=== PATIENT | female | born 1990 | race Caucasian/White ===

== ENCOUNTER → 2016-11-20 | Day surgery (SDC) | payer OTHER ==
[~2016-11-20] VITALS: Ht 149.8 cm; Wt 55.8 kg
[~2016-11-20] MED LIST: BACTRIM DS 8001 TA1 PO; BIRTH CONTROL1 EAC1 PO; BUTALB-ACETAMI1 EAC1 PO; CIPRO250 MG PO; CLARITIN10 MG PO; COLACE100 MG PO; DIFLUCAN150 MG PO; FIORICET 325 MG1 TAB PO; FLONASE 0.05% 121 EA NAS; IRON325 M1 PO; LEVOTHYROXINE0.05 M1 PO; MEDROL DOSEPAK4 MG PO; MOTRIN800 MG PO; PERCOCET 325 MG1 TA2 PO; PNV PRENATAL HE1 TAB PO; ROBITUSSIN AC 110 ML PO; ZITHROMAX Z PA250 MG PO
--- NOTE | ~2016-11-20 | O ---
[place], [place] OPERATIVE NOTE NAME[id number] UNIT #: [id number] ROOM: DOCTOR: MADISYN GONZALEZ,ASHLEIGH BIRTHDATE: [birth year] DOS: 11/20/2016 GASTROENDOSCOPIC REPORT The patient is a 26-year-old who presented with rectal pain, undergoing investigation. PROCEDURE: Today's procedure part of investigation is colonoscopy. PREMEDICATION: Versed and Diprivan. SCOPE: Olympus folding colonoscope 10L video. REPORT: After putting the patient in the left lateral position and after application of lubricant to rectal pouch and digital examination, scope was introduced. Thereafter, under direct visualization, I advanced through the length of colon without difficulty. Base of the cecum explored, appendiceal orifice identified, and ileocecal valve was defined. Scope was gradually withdrawn ascending, transverse, descending colon. Patient extubated, tolerated procedure well. IMPRESSION: Small hemorrhoid, otherwise normal colonoscopic examination. PLAN: High fiber diet. ACTIVITY: Ad pat. Preparation H-suppositories p.r.n. for rectal management of periodic blood on the stool. PLAN: Otherwise, supportive management. ASHLEIGH MARS MD CM:OPRECORD:OPERATIVE NOTE [id number] ASHLEIGH MARS MD 11/20/16 1351 interface
[2016-11-20 10:40] VITALS: BP 112/70
[2016-11-20 10:54] VITALS: BP 81/35
[2016-11-20 11:10] VITALS: BP 120/70
[2016-11-20 11:23] VITALS: BP 116/64
== END | disposition home or self-care (01) ==
LOC: SDC 11-18 08:45
DX: K64.8 Other hemorrhoids (principal); K92.1 Melena

== ENCOUNTER 2019-05-02 15:53 | Emergency (ER) | payer OTHER ==
[~2019-05-02] VITALS: Ht 149.8 cm; Wt 57.2 kg
[~2019-05-02 15:53] MED LIST changes: +SEPTDS PO; +Zofran4 MG SL
[2019-05-02] MEDS ORDERED: CLINDAMYCIN HC300 MG PO (16:01)
[2019-05-02] MEDS ORDERED: NAPROSYN500 MG PO (16:01)
== END 2019-05-02 16:45 | disposition home or self-care (01) ==
LOC: ED 15:53
DX: K02.9 Dental caries, unspecified (principal); Z88.1 Allergy status to other antibiotic agents; Z79.899 Other long term (current) drug therapy

== ENCOUNTER 2019-09-05 21:24 | Emergency (ER) | payer OTHER ==
[~2019-09-05] VITALS: Ht 149.8 cm; Wt 57.2 kg
[~2019-09-05 21:24] MED LIST changes: +CLINDAMYCIN HC300 MG PO; +NAPROSYN500 MG PO
== END 2019-09-05 23:00 | disposition left against medical advice (07) ==
LOC: ED 21:24
DX: J02.9 Acute pharyngitis, unspecified (principal); Z53.21 Procedure and treatment not carried out due to patient leaving prior to being seen by health care provider

== ENCOUNTER 2021-02-06 15:32 | Emergency (ER) | payer OTHER ==
[~2021-02-06] VITALS: Wt 65.3 kg
[2021-02-06 16:10] LABS: BILIRUBIN Negative (Negative); BLOOD 3+ (Negative); CLARITY Cloudy (Clear); COLOR Yellow (Yellow); GLUCOSE Negative (Negative); KETONE Negative (Negative); LEUKO ESTERASE 2+ (Negative); NITRITE Positive (Negative); SPECIFIC GRAVITY 1.025 (1.001-1.030)
[2021-02-06 16:27] LABS: BACTERIA 4+; EPITHELIAL CELLS 16-20; RBC TNTC rbc/hpf (0-2); WBC TNTC wbc/hpf (0-5)
[2021-02-06 16:56] LABS: BASO % 0.1 % (0.0-1.0); HEMATOCRIT 30.4 % (37.0-47.0); MEAN CELL VOLUME 80.2 fl (81.0-99.0); MEAN CORPUSCULAR HGB 24.8 pg (27.0-31.0); MEAN CORPUSCULAR HGB CONC 30.9 g/dl (33.0-37.0); MONO # 0.6 10*3/uL (0.1-1.0); MONO % 4.7 % (3.0-9.0); NEUT # 10.4 10*3/uL (2.3-7.9); NEUT % 79.8 % (47.0-73.0); PLATELET COUNT AUTOMATED 461 10*3/uL (130-400); RED BLOOD COUNT 3.79 10*6/uL (4.10-5.10); RED CELL DISTRI WIDTH 14.9 % (0-14.5); WHITE BLOOD COUNT 13.1 10*3/uL (4.8-10.8)
[2021-02-06 17:38] LABS: ALBUMIN 4.1 gm/dl (3.1-4.5); ALKALINE PHOSPHATASE 95 U/L (45-117); BUN 15 mg/dl (7-24); CHLORIDE 107 mmol/L (98-107); CREATININE 0.79 mg/dL (0.55-1.02); POTASSIUM 3.7 mmol/L (3.5-5.1); SGOT/AST 11 IU/L (3-35); SGPT/ALT 21 U/L (12-78); SODIUM 137 mmol/L (136-145); TOTAL PROTEIN 7.9 gm/dL (6.4-8.2)
[2021-02-06] MEDS ORDERED: CIPRO500 MG PO (18:09)
[2021-02-06] MEDS ORDERED: NAPROXEN250 MG PO (18:09)
[2021-02-06] MEDS ORDERED: TYLENOL325 M1 PO (18:09)
[2021-02-06] MEDS ORDERED: PYRIDIUM200 M1 PO (18:09)
== END 2021-02-06 18:45 | disposition home or self-care (01) ==
LOC: ED 15:32
PROVIDERS: Emergency Medicine
DX: N12 Tubulo-interstitial nephritis, not specified as acute or chronic (principal); E66.9 Obesity, unspecified; Z79.899 Other long term (current) drug therapy; Z88.1 Allergy status to other antibiotic agents; Z87.891 Personal history of nicotine dependence

== ENCOUNTER 2022-01-05 18:01 | Emergency (ER) | payer OTHER ==
[~2022-01-05] VITALS: Wt 65.8 kg
[~2022-01-05 18:01] MED LIST changes: +CIPRO500 MG PO; +NAPROXEN250 MG PO; +PYRIDIUM200 M1 PO; +TYLENOL325 M1 PO
== END 2022-01-05 21:01 | disposition home or self-care (01) ==
LOC: ED 18:01
DX: S52.501A Unspecified fracture of the lower end of right radius, initial encounter for closed fracture (principal); Z88.1 Allergy status to other antibiotic agents; Z79.899 Other long term (current) drug therapy; W51.XXXA Accidental striking against or bumped into by another person, initial encounter; Y93.89 Activity, other specified; Y92.89 Other specified places as the place of occurrence of the external cause; Y99.8 Other external cause status

== ENCOUNTER 2022-01-10 17:38 | Emergency (ER) | payer OTHER ==
[~2022-01-10] VITALS: Ht 149.8 cm; Wt 65.8 kg
[~2022-01-10 17:38] MED LIST changes: +SYNTHROID,LEV125 MCG PO; +XARELTO1 EACH PO; +XARELTO20 M1 PO
[2022-01-10 18:32] LABS: BILIRUBIN Negative (Negative); BLOOD Negative (Negative); CLARITY Cloudy (Clear); COLOR Yellow (Yellow); GLUCOSE Negative (Negative); KETONE Trace (Negative); LEUKO ESTERASE 1+ (Negative); NITRITE Negative (Negative); PH 6.5 (4.5-8.0); SPECIFIC GRAVITY 1.025 (1.001-1.030)
[2022-01-10 18:40] LABS: BACTERIA 3+
[2022-01-10 18:41] LABS: EPITHELIAL CELLS TNTC
[2022-01-10 18:43] LABS: YEAST TRACE
[2022-01-10 19:12] LABS: BASO % 0.1 % (0.0-1.0); HEMATOCRIT 26.1 % (37.0-47.0); LYMPH # 3.2 10*3/uL (1.3-4.4); LYMPH % 16.2 % (27.0-41.0); MEAN CELL VOLUME 67.3 fl (81.0-99.0); MEAN CORPUSCULAR HGB 18.8 pg (27.0-31.0); MEAN PLATELET VOLUME 9.7 fl (9.6-12.3); MONO # 0.7 10*3/uL (0.1-1.0); MONO % 3.7 % (3.0-9.0); NEUT # 15.7 10*3/uL (2.3-7.9); NEUT % 78.5 % (47.0-73.0); PLATELET COUNT AUTOMATED 503 10*3/uL (130-400); RED BLOOD COUNT 3.88 10*6/uL (4.10-5.10); RED CELL DISTRI WIDTH 19.7 % (0-14.5)
[2022-01-10 19:27] LABS: ALKALINE PHOSPHATASE 83 U/L (45-117); BUN 18 mg/dl (7-24); CHLORIDE 109 mmol/L (98-107); CPK 34 U/L (26-192); POTASSIUM 3.7 mmol/L (3.5-5.1); SGOT/AST 18 IU/L (3-35); SGPT/ALT 39 U/L (12-78); SODIUM 141 mmol/L (136-145); TOTAL PROTEIN 6.9 gm/dL (6.4-8.2)
[2022-01-10] MEDS ORDERED: CIPRO500 MG PO (21:06)
== END 2022-01-10 21:22 | disposition home or self-care (01) ==
LOC: ED 17:38
PROVIDERS: Emergency Medicine; Internal Medicine
DX: N39.0 Urinary tract infection, site not specified (principal); D72.829 Elevated white blood cell count, unspecified; D50.9 Iron deficiency anemia, unspecified; Z88.1 Allergy status to other antibiotic agents

== ENCOUNTER 2022-06-28 09:41 | Emergency (ER) | payer SELFPAY ==
[~2022-06-28] VITALS: Ht 149.8 cm; Wt 62.6 kg
[2022-06-28 10:32] LABS: HEMATOCRIT 37.9 % (37.0-47.0); LYMPH # 1.1 10*3/uL (1.3-4.4); LYMPH % 9.6 % (27.0-41.0); MEAN CELL VOLUME 87.3 fl (81.0-99.0); MEAN CORPUSCULAR HGB 28.6 pg (27.0-31.0); MEAN CORPUSCULAR HGB CONC 32.7 g/dl (33.0-37.0); MEAN PLATELET VOLUME 9.8 fl (9.6-12.3); MONO # 0.4 10*3/uL (0.1-1.0); MONO % 3.7 % (3.0-9.0); NEUT # 10.2 10*3/uL (2.3-7.9); NEUT % 86.1 % (47.0-73.0); PLATELET COUNT AUTOMATED 287 10*3/uL (130-400); RED BLOOD COUNT 4.34 10*6/uL (4.10-5.10); WHITE BLOOD COUNT 11.8 10*3/uL (4.8-10.8)
[2022-06-28 10:34] LABS: BILIRUBIN Negative (Negative); BLOOD 3+ (Negative); CLARITY Cloudy (Clear); COLOR Yellow (Yellow); GLUCOSE Negative (Negative); KETONE Trace (Negative); LEUKO ESTERASE 1+ (Negative); NITRITE Negative (Negative); UROBILINOGEN 0.2 E.U./dl (0.0-1.0)
[2022-06-28 10:41] LABS: BACTERIA 2+; EPITHELIAL CELLS 21-30; MUCOUS 1+; RBC TNTC rbc/hpf (0-2)
[2022-06-28 10:51] LABS: ALKALINE PHOSPHATASE 68 U/L (46-116); BUN 13 mg/dl (9-23); CHLORIDE 106 mmol/L (98-107); CREATININE 0.77 mg/dL (0.55-1.02); LIPASE 36 U/L (12-53); POTASSIUM 3.7 mmol/L (3.4-5.1); SGPT/ALT 10 U/L (10-49); SODIUM 139 mmol/L (136-145); TOTAL PROTEIN 7.4 gm/dL (6.0-8.0)
[2022-06-28] MEDS ORDERED: FLOMAX0.4 MG PO (12:53)
[2022-06-28] MEDS ORDERED: SEPTDS PO (12:53)
[2022-06-28] MEDS ORDERED: PERCOCET 5-3251 EACH PO (13:05)
[2022-06-28] MEDS ORDERED: ONDANSETRON4 MG SL (13:05)
== END 2022-06-28 13:41 | disposition home or self-care (01) ==
LOC: ED 09:41
PROVIDERS: Family Medicine
DX: N39.0 Urinary tract infection, site not specified (principal); N20.0 Calculus of kidney; Z88.1 Allergy status to other antibiotic agents; Z98.890 Other specified postprocedural states; Z87.891 Personal history of nicotine dependence

== ENCOUNTER 2022-07-24 15:18 | Emergency (ER) | payer SELFPAY ==
[~2022-07-24] VITALS: Wt 62.6 kg
[~2022-07-24 15:18] MED LIST changes: +FLOMAX0.4 MG PO; +ONDANSETRON4 MG SL; +PERCOCET 5-3251 EACH PO
[2022-07-24 16:26] LABS: BASO % 0.1 % (0.0-1.0); HEMATOCRIT 35.8 % (37.0-47.0); LYMPH # 1.8 10*3/uL (1.3-4.4); LYMPH % 21.5 % (27.0-41.0); MEAN CELL VOLUME 88.6 fl (81.0-99.0); MEAN CORPUSCULAR HGB 28.2 pg (27.0-31.0); MEAN CORPUSCULAR HGB CONC 31.8 g/dl (33.0-37.0); MEAN PLATELET VOLUME 8.8 fl (9.6-12.3); MONO # 0.4 10*3/uL (0.1-1.0); MONO % 5.3 % (3.0-9.0); NEUT # 5.9 10*3/uL (2.3-7.9); PLATELET COUNT AUTOMATED 262 10*3/uL (130-400); RED BLOOD COUNT 4.04 10*6/uL (4.10-5.10); RED CELL DISTRI WIDTH 13.2 % (0-14.5); WHITE BLOOD COUNT 8.1 10*3/uL (4.8-10.8)
[2022-07-24 16:32] LABS: BILIRUBIN Negative (Negative); BLOOD 2+ (Negative); CLARITY Clear (Clear); COLOR Yellow (Yellow); GLUCOSE Negative (Negative); KETONE Negative (Negative); LEUKO ESTERASE Trace (Negative); NITRITE Negative (Negative); PH 5.5 (4.5-8.0); SPECIFIC GRAVITY 1.025 (1.001-1.030)
[2022-07-24 16:39] LABS: BACTERIA 2+; MUCOUS 1+; RBC 16-20 rbc/hpf (0-2)
[2022-07-24 16:42] LABS: ALKALINE PHOSPHATASE 70 U/L (46-116); BUN 12 mg/dl (9-23); CHLORIDE 105 mmol/L (98-107); POTASSIUM 3.6 mmol/L (3.4-5.1); SGPT/ALT < 7 U/L (10-49); TOTAL PROTEIN 7.1 gm/dL (6.0-8.0)
[2022-07-24] MEDS ORDERED: ONDANSETRON4 MG SL (19:42)
[2022-07-24] MEDS ORDERED: SEPTDS PO (19:42)
[2022-07-24] MEDS ORDERED: Motrin,Rufen800 MG PO (19:42)
[2022-07-24] MEDS ORDERED: HYDROCODONE-AC1 EAC1 PO (19:42)
[2022-07-24] MEDS ORDERED: FLOMAX0.4 MG PO (19:42)
== END 2022-07-24 20:00 | disposition home or self-care (01) ==
LOC: ED 15:18
PROVIDERS: Physician Assistant
DX: N20.1 Calculus of ureter (principal); Z87.442 Personal history of urinary calculi; Z98.890 Other specified postprocedural states; F17.200 Nicotine dependence, unspecified, uncomplicated; Z88.1 Allergy status to other antibiotic agents

== ENCOUNTER 2023-06-14 13:57 | Emergency (ER) | payer SELFPAY ==
[~2023-06-14] VITALS: Ht 149.8 cm; Wt 62.6 kg
[~2023-06-14 13:57] MED LIST changes: +HYDROCODONE-AC1 EAC1 PO; +Motrin,Rufen800 MG PO
== END 2023-06-14 18:00 | disposition home or self-care (01) ==
LOC: ED 13:57
DX: G43.909 Migraine, unspecified, not intractable, without status migrainosus (principal); M54.2 Cervicalgia; Z87.442 Personal history of urinary calculi; Z88.8 Allergy status to other drugs, medicaments and biological substances; Z98.890 Other specified postprocedural states; F17.200 Nicotine dependence, unspecified, uncomplicated

== ENCOUNTER 2023-11-24 11:29 | Emergency (ER) | payer OTHER ==
[~2023-11-24] VITALS: Ht 180.3 cm; Wt 65.8 kg
[2023-11-24] MEDS ORDERED: LEVOTHYROXINE175 MCG PO (11:39)
[2023-11-24] MEDS ORDERED: Dicyclomine Hydrochloride 20 MG/10 ML OSYR PO STA (11:49)
[2023-11-24] MEDS ORDERED: Lidocaine Hydrochloride 15 ML UDC PO STA (11:49)
[2023-11-24] MEDS ORDERED: MG-AL HYDROXIDE/SIMETICONE 30 ML UDC PO STA (11:49)
[2023-11-24] MEDS ORDERED: SODIUM CHLORIDE 0.9% 1,000 ML IV ONE (11:55)
[2023-11-24] MEDS ORDERED: IOHEXOL 300 MG/ML 100 ML VIAL IV ONE (12:05)
[2023-11-24 12:09] LABS: BASO % 0.1 % (0.0-1.0); HEMATOCRIT 35.2 % (37.0-47.0); LYMPH # 1.2 10*3/uL (1.3-4.4); LYMPH % 15.3 % (27.0-41.0); MEAN CELL VOLUME 80.5 fl (81.0-99.0); MEAN CORPUSCULAR HGB 25.2 pg (27.0-31.0); MEAN CORPUSCULAR HGB CONC 31.3 g/dl (33.0-37.0); MONO # 0.4 10*3/uL (0.1-1.0); MONO % 4.8 % (3.0-9.0); NEUT # 6.4 10*3/uL (2.3-7.9); NEUT % 79.3 % (47.0-73.0); PLATELET COUNT AUTOMATED 355 10*3/uL (130-400); RED BLOOD COUNT 4.37 10*6/uL (4.10-5.10); RED CELL DISTRI WIDTH 13.4 % (0-14.5); WHITE BLOOD COUNT 8.1 10*3/uL (4.8-10.8)
[2023-11-24 12:22] LABS: URINE AMPHETAMINES Negative (1000ng/ml); URINE BARBITURATES Negative (200ng/ml); URINE BENZODIAZEPINES Negative (200ng/ml); URINE CANNABINOIDS (THC) Negative (50ng/ml); URINE COCAINE Negative (300ng/ml); URINE METHADONE Negative (300ng/ml); URINE OPIATES Negative (300ng/ml); URINE PHENCYCLIDINE Negative (25ng/ml)
[2023-11-24 12:31] LABS: ALKALINE PHOSPHATASE 83 U/L (46-116); BUN 8 mg/dl (9-23); CHLORIDE 104 mmol/L (98-107); LIPASE 50 U/L (12-53); POTASSIUM 3.8 mmol/L (3.4-5.1); SGPT/ALT 17 U/L (5-49); TOTAL PROTEIN 7.3 gm/dL (6.0-8.0)
[2023-11-24 12:35] LABS: ETHYL ALCOHOL < 3.0 mg/dl (<3)
[2023-11-24] MEDS ORDERED: METRONIDAZOLE500 M1 PO (13:59)
[2023-11-24] MEDS ORDERED: CIPRO500 MG PO (13:59)
== END 2023-11-24 14:15 | disposition home or self-care (01) ==
LOC: ED 11:29
PROVIDERS: Internal Medicine
DX: K52.9 Noninfective gastroenteritis and colitis, unspecified (principal); G43.909 Migraine, unspecified, not intractable, without status migrainosus; R11.2 Nausea with vomiting, unspecified; Z87.442 Personal history of urinary calculi; Z88.8 Allergy status to other drugs, medicaments and biological substances; Z98.890 Other specified postprocedural states; F17.200 Nicotine dependence, unspecified, uncomplicated

== ENCOUNTER 2025-05-03 08:58 | Emergency (ER) | payer SELFPAY ==
[~2025-05-03] VITALS: Ht 149.8 cm; Wt 70.3 kg
[~2025-05-03 08:58] MED LIST changes: +LEVOTHYROXINE175 MCG PO; +METRONIDAZOLE500 M1 PO
[2025-05-03] MEDS ORDERED: diphenhydrAMINE hydrochloride 50 MG/ML VIAL IV ONE (09:10)
[2025-05-03] MEDS ORDERED: SODIUM CHLORIDE 0.9% 1,000 ML IV ONE (09:10)
[2025-05-03] MEDS ORDERED: Metoclopramide Hydrochloride 10 MG/2 ML VIAL IV ONE (09:10)
[2025-05-03 09:23] LABS: BASO # 0.0 10*3/uL (0.0-0.1); BASO % 0.3 % (0.0-1.0); EOS # 0.0 10*3/uL (0.0-0.4); EOS % 0.1 % (1.0-4.0); MEAN CELL VOLUME 66.4 fl (81.0-99.0); MEAN CORPUSCULAR HGB 18.8 pg (27.0-31.0); MEAN PLATELET VOLUME 8.8 fl (9.6-12.3); MONO # 0.4 10*3/uL (0.1-1.0); MONO % 4.5 % (3.0-9.0); NEUT # 7.3 10*3/uL (2.3-7.9); NEUT % 77.1 % (47.0-73.0); NUCLEATED RED BLOOD CELL 0.0 % (0.0-0.0); NUCLEATED RED BLOOD CELL 0.0 10*3/uL (0.0-0.0); PLATELET COUNT AUTOMATED 438 10*3/uL (130-400); RED CELL DISTRI WIDTH 19.8 % (0-14.5)
[2025-05-03 09:47] LABS: BUN 8 mg/dl (9-23)
[2025-05-03] MEDS ORDERED: IBU800 M2 PO (10:17)
[2025-05-03] MEDS ORDERED: REGLAN10 M1 PO (10:17)
== END 2025-05-03 10:21 | disposition home or self-care (01) ==
LOC: ED 08:58
PROVIDERS: Emergency Medicine
DX: G43.909 Migraine, unspecified, not intractable, without status migrainosus (principal); R11.0 Nausea; M79.18 Myalgia, other site; M54.2 Cervicalgia; E07.9 Disorder of thyroid, unspecified; F17.210 Nicotine dependence, cigarettes, uncomplicated; Z98.890 Other specified postprocedural states; Z88.8 Allergy status to other drugs, medicaments and biological substances; Z87.442 Personal history of urinary calculi

== ENCOUNTER 2025-06-15 10:03 | Emergency (ER) | payer SELFPAY ==
[~2025-06-15] VITALS: Ht 149.8 cm; Wt 72.6 kg
[~2025-06-15 10:03] MED LIST changes: +IBU800 M2 PO; +REGLAN10 M1 PO
[2025-06-15] MEDS ORDERED: Lactated Ringer's Solution 1,000 ML IV SCH (11:05)
[2025-06-15 11:19] LABS: BASO # 0.0 10*3/uL (0.0-0.1); BASO % 0.2 % (0.0-1.0); EOS # 0.0 10*3/uL (0.0-0.4); EOS % 0.0 % (1.0-4.0); MEAN CELL VOLUME 66.2 fl (81.0-99.0); MEAN CORPUSCULAR HGB 18.2 pg (27.0-31.0); MEAN PLATELET VOLUME 8.5 fl (9.6-12.3); MONO # 0.4 10*3/uL (0.1-1.0); MONO % 3.3 % (3.0-9.0); NEUT # 10.5 10*3/uL (2.3-7.9); NEUT % 86.5 % (47.0-73.0); NUCLEATED RED BLOOD CELL 0.0 % (0.0-0.0); NUCLEATED RED BLOOD CELL 0.0 10*3/uL (0.0-0.0); PLATELET COUNT AUTOMATED 441 10*3/uL (130-400); RED CELL DISTRI WIDTH 18.6 % (0-14.5)
[2025-06-15 11:46] LABS: BUN 9 mg/dl (9-23); SGPT/ALT 16 U/L (5-49)
[2025-06-15 12:21] LABS: BILIRUBIN Negative (Negative); BLOOD 2+ (Negative); CLARITY Cloudy (Clear); COLOR Yellow (Yellow); KETONE Trace (Negative); LEUKO ESTERASE Trace (Negative); NITRITE Negative (Negative); PH 5.0 (4.5-8.0); SPECIFIC GRAVITY >= 1.030 (1.001-1.030); UROBILINOGEN 1.0 E.U./dl (0.0-1.0)
[2025-06-15 12:42] LABS: BACTERIA 3+; EPITHELIAL CELLS 21-30; MUCOUS 1+
[2025-06-15] MEDS ORDERED: SEPTDS PO (14:54)
== END 2025-06-15 15:12 | disposition home or self-care (01) ==
LOC: ED 10:03
PROVIDERS: Emergency Medicine
DX: N39.0 Urinary tract infection, site not specified (principal); L50.9 Urticaria, unspecified; G43.909 Migraine, unspecified, not intractable, without status migrainosus; E07.9 Disorder of thyroid, unspecified; F17.200 Nicotine dependence, unspecified, uncomplicated; Z98.890 Other specified postprocedural states; Z88.8 Allergy status to other drugs, medicaments and biological substances; Z87.442 Personal history of urinary calculi